=== PATIENT | male | born 1995 | race Caucasian/White ===

== ENCOUNTER 2021-01-29 10:04 | Emergency (ER) | payer SELFPAY ==
[~2021-01-29] VITALS: Ht 160 cm; Wt 84.8 kg
[2021-01-29 10:15] VITALS: BP 165/106
--- NOTE | 2021-01-29 10:40 | NUR ---
PT AMBULATED TO BED, STEADY GAIT
--- NOTE | 2021-01-29 10:51 | NUR ---
25 YEARS OLD MALE WITH NO MEDICAL HISTORY PRESENT TO ER WITH LEFT SUBTERNAL CHEST PAIN WITH SOB TODAY. PLACED PATIENT ON DIE KEEPER, CONTINUOUS PULSE OXIMETER
[2021-01-29] MEDS ORDERED: KETOROLAC 30 MG/ML VIAL IM ONE (11:20)
[2021-01-29] MEDS ORDERED: NAPR-54 PO (11:44)
[2021-01-29] MEDS ORDERED: HYDR-637 PO (11:45)
[2021-01-29 12:23] VITALS: BP 165/106
--- NOTE | 2021-01-29 12:24 | NUR ---
Patient discharged with v/s stable. Written and verbal after care instructions given and explained. Patient alert, oriented and verbalized understanding of instructions. Ambulatory with steady gait. All questions addressed prior to discharge. ID band removed. Patient advised to follow up with PMD. Rx of naproxen, hydroxyzine hcl (sent) given. Patient educated on indication of medication including possible reaction and side effects. Opportunity to ask questions provided and answered.
== END 2021-01-29 12:23 | disposition home or self-care (01) ==
LOC: MED 10:04
DX: R07.89 Other chest pain (principal); F17.200 Nicotine dependence, unspecified, uncomplicated; Z79.899 Other long term (current) drug therapy
CPT/HCPCS: 71045; 93005; 96372; 99283; J1885; Q0092

== ENCOUNTER 2022-10-08 05:44 | Emergency (ER) | payer MEDICAID ==
[~2022-10-08] VITALS: Ht 160 cm; Wt 69.4 kg
[~2022-10-08 05:44] MED LIST: HYDR-637 PO; NAPR-54 PO
[2022-10-08 05:48] VITALS: BP 147/98; PULSE 76; RESP 20; TEMP 97.9; O2SAT 99
[2022-10-08 07:23] LABS: BASOPHILS % (AUTO) 0.9 % (0.0-2.0); EOSINOPHILS % (AUTO) 0.7 % (0.0-4.0); HEMOGLOBIN 14.2 g/dL (12.0-18.0); LYMPHOCYTES # (AUTO) 1.5 K/uL (2.0-11.5); LYMPHOCYTES % (AUTO) 37.6 % (20.5-51.1); MEAN CORPUSCULAR HEMOGLOBIN 30 pg (27-31); MEAN CORPUSCULAR HGB CONC 35 g/dL (33-37); MEAN CORPUSCULAR VOLUME 87.2 fL (80-94); MONOCYTES # (AUTO) 0.4 K/uL (0.8-1.0); MONOCYTES % (AUTO) 9.5 % (1.7-9.3); NEUTROPHILS % (AUTO) 51.3 % (42.2-75.2); PLATELET COUNT (AUTO) 266 K/uL (140-450); RED BLOOD CELL COUNT(AUTO) 4.71 MIL/uL (4.20-6.10)
[2022-10-08 07:42] LABS: ALANINE AMINOTRANSFERASE 18 U/L (12-78); ALKALINE PHOSPHATASE 60 U/L (50-136); ASPARTATE AMINOTRANSFERASE 15 U/L (15-37); CALCIUM 8.7 mg/dL (8.5-10.1); CARBON DIOXIDE 29.3 mmol/L (21-32); CHLORIDE 105 mmol/L (98-107); CREATININE 0.9 mg/dL (0.6-1.3); GFR ARICAN-AMERICAN 132 mL/min (>90); GFR NON ARICAN-AMERICAN 109 mL/min (>90); GLUCOSE 93 mg/dL (74-106); MAGNESIUM 1.9 mg/dL (1.8-2.4); PHOSPHORUS 2.6 mg/dL (2.5-4.9); POTASSIUM 4.3 mmol/L (3.5-5.1); SODIUM SERUM 141 mmol/L (136-145); TOTAL BILIRUBIN 0.3 mg/dL (0.0-1.0); TOTAL PROTEIN, SERUM 6.9 g/dL (6.4-8.2); UREA NITROGEN, BLOOD 9 mg/dL (7-18)
[2022-10-08] MEDS ORDERED: ATA25 PO (08:03)
[2022-10-08 08:07] LABS: THYROID STIMULATING HORMONE 1.88 uIU/mL (0.34-3.74)
[2022-10-08 08:10] VITALS: O2SAT 99
[2022-10-08 08:30] VITALS: BP 111/72; PULSE 63; RESP 18; TEMP 97.9; O2SAT 99
== END 2022-10-08 08:30 | disposition home or self-care (01) ==
LOC: MED 05:44
DX: F41.0 Panic disorder [episodic paroxysmal anxiety] (principal); Z79.899 Other long term (current) drug therapy
CPT/HCPCS: 36415; 71045; 80053; 83735; 84100; 84443; 84484; 85025; 93005; 99285; Q0092